=== PATIENT | male | born 1985 | race African-American/Black ===

== ENCOUNTER 2023-07-04 16:39 | Emergency (ER) | payer OTHER ==
[~2023-07-04] VITALS: Ht 182.9 cm; Wt 72.6 kg
[2023-07-04 17:00] VITALS: BP_SYST 114; PULSE 110; RESP 18; TEMP 98.2; O2SAT 98
--- NOTE | 2023-07-04 17:05 | NUR ---
Patient to ER bed 03 to gown for evaluation. Side rails up. Report given to CARMITA Atwood
[2023-07-04] MEDS ORDERED: NACL 0.9% 1,000 ML IV ONE (17:15)
--- NOTE | 2023-07-04 17:15 | NUR ---
PT LEFT WITHOUT BEING SEEN.
== END 2023-07-04 17:15 | disposition left against medical advice (07) ==
LOC: SED 16:39
DX: R53.1 Weakness (principal); Z53.21 Procedure and treatment not carried out due to patient leaving prior to being seen by health care provider
CPT/HCPCS: 99281